=== PATIENT | female | born 1995 | race Caucasian/White ===

== ENCOUNTER 2021-11-14 10:51 | Outpatient (CLI) | payer OTHER ==
[~2021-11-14] VITALS: Ht 170.2 cm; Wt 91.8 kg
[2021-11-14 10:55] VITALS: BP 137/81; PULSE 82; TEMP 98.4
[2021-11-14] MEDS ORDERED: CYMBALTA 60MG60 MG PO (11:00)
[2021-11-14] MEDS ORDERED: PRENATAL (11:01)
--- NOTE | 2021-11-14 11:46 | NUR ---
1051 PATIENT HERE FOR COMPLAINTS OF CONTRACTIONS SINCE THIS AM. EFM ON FHT 120 GOOD ACCELERATIONS NOTES. BABY VERY ACTIVE. CONTRACTIONS IRREGULAR 7-9 MIN APART. ASSESSMENT COMPLETED. SVE -/-3 DR DIEGO CALLED AND UPDATED. ORDERS TO RECHECK IN HOUR AND RECHECK IF NO CHANGE MAY SEND HOME
[2021-11-14 12:04] VITALS: BP 137/94; PULSE 88
--- NOTE | 2021-11-14 12:05 | NUR ---
1200 NO CHANGES NOTED LIZBET ALEGRE. DISMISSED TO HOME WITH DISCHARGE INSTRUCTIONS GIVEN, VERBAL UNDERSTANDING NOTED.
== END 2021-11-14 12:05 | disposition home or self-care (01) ==
LOC: LDRO 10:51
DX: O62.9 Abnormality of forces of labor, unspecified (principal); Z3A.38 38 weeks gestation of pregnancy

== ENCOUNTER 2021-11-14 21:02 | Inpatient (IN) | payer OTHER ==
[~2021-11-14] VITALS: Ht 170.2 cm; Wt 91.8 kg
[2021-11-14] VITALS (10 sets, daily range): BP systolic 108–155; BP diastolic 57–91; PULSE 76–146; TEMP 97.9
[~2021-11-14 21:02] MED LIST: CYMBALTA 60MG60 MG PO; PRENATAL
--- NOTE | 2021-11-14 21:10 | NUR ---
2109 G1L0 40.1 WEEK GEST TO LR6 FOR LABOR CHECK. UNCOMFORTABLE WITH CONTRACTIONS. EFM ON. SVE /-1. ADM ASSESSMENT COMPLETED. WANTING EPID. 2124 DR DIEGO NOTIFIED AND ORDERS RECEIVED.
--- NOTE | 2021-11-14 21:50 | NUR ---
2150 IV STARTED IN LEFT HAND. GRAPHIC SPECIALIST HERE FOR EPID PLACEMENT.
--- NOTE | 2021-11-14 22:10 | NUR ---
2210 SITTING UP FOR EPID PLACEMENT. TEST DOSE GIVEN. SEE [facility] RECORDS FOR MORE INFORMATION.
[2021-11-14 23:28] LABS: BASO # 0.1 K/mm3 (0.0-0.2); BASO % 0.3 % (0.0-2.0); GRAN # 16.2 K/mm3 (1.4-6.5); GRAN % 87.1 % (42.2-75.2); HEMATOCRIT 37.7 % (37.0-47.0); HEMOGLOBIN 12.4 g/dl (12.5-16.0); LYMPH # 1.4 K/mm3 (1.2-3.4); LYMPH % 7.6 % (20.0-51.0); MEAN CELL VOLUME 85 fl (80.0-100.0); MEAN CORPUSCULAR HEMOGLOBIN 28 pg (27-31); MEAN CORPUSCULAR HGB CONC 33 g/dl (33.0-37.0); MEAN PLATELET VOLUME 11.1 fl (7.4-10.4); MONO # 0.8 K/mm3 (0.1-0.6); MONO % 4.2 % (1.7-9.3); PLATELET COUNT 248 K/mm3 (130-400); RED BLOOD COUNT 4.42 M/mm3 (4.10-5.30); REDCELL DISTRIBUTION WIDTH-CV 13.9 % (11.5-14.5)
[2021-11-14 23:33] LABS: TRICYCLIC ANTIDEPRESS URINE NEGATIVE
--- NOTE | 2021-11-14 23:45 | NUR ---
2345 PUSHING WITH CONTRACTIONS. READIED FOR DELIVERY. DR DIEGO IN ROOM. 1034 DEL VIABLE FEMALE OVER 2 DEGREE LAC WITH 7/9/9 APGARS. IV CONTS TO INFUSE.
[2021-11-15] VITALS (11 sets, daily range): BP systolic 115–143; BP diastolic 58–93; PULSE 71–116; TEMP 97.5–98.4
--- NOTE | 2021-11-15 02:00 | NUR ---
0200 EPID CATH DC'D. IV TO INT. AMB TO BR WITH ASSIST. NO VOID. PERICARE DONE. ICE TO PERINEUM. AMB TO 208 AND PRAVEEN WELL. MOTRIN AND TYLENOL GIVEN.
--- NOTE | 2021-11-15 10:01 | NUR ---
Initial visit attempt; Family resting, Fairground Operator left card offering congratulations, God's blessings and information regarding the availability of spiritual care at [facility].
[2021-11-16] VITALS: BP 120/78; PULSE 61
[2021-11-16 07:55] VITALS: BP 127/91; PULSE 73; TEMP 97.6
[2021-11-16] MEDS ORDERED: MOTRIN 800800 MG/TAB PO (09:48)
== END 2021-11-16 11:25 | disposition home or self-care (01) | DRG 807 ==
LOC: LDRO 21:02 → LDR 21:24 → OB 21:24 → LDR 21:25 → OB 11-15 02:00
PROVIDERS: ADMIT Obstetrics & Gynecology
PROC: 10E0XZZ Delivery of Products of Conception, External Approach (ICD-10-PCS; principal; 2021-11-15)
PROC: 0KQM0ZZ Repair Perineum Muscle, Open Approach (ICD-10-PCS; 2021-11-15)
DX: O99.344 Other mental disorders complicating childbirth (principal); Z37.0 Single live birth; F41.9 Anxiety disorder, unspecified; F32.A Depression, unspecified; O77.0 Labor and delivery complicated by meconium in amniotic fluid; O70.1 Second degree perineal laceration during delivery; Z3A.40 40 weeks gestation of pregnancy
CPT/HCPCS: J2590; J7120